=== PATIENT | female | born 1955 | race Caucasian/White ===

== ENCOUNTER 2023-07-05 10:58 | Emergency (ER) | payer SELFPAY ==
[2023-07-05] MEDS ORDERED: FLUORESCEIN NA 1 EA STRIP OS ONE (11:10)
[2023-07-05 11:11] VITALS: BP 140/73; PULSE 68; RESP 20; TEMP 98.8; BMI 30.2
[2023-07-05] MEDS ORDERED: TETRACAINE 0.5% OPHTH SOLN 2 ML BOTTLE OS ONE (11:11)
[2023-07-05] MEDS ORDERED: TETRACAINE 0.5% OPHTH SOLN 2 ML BOTTLE ONE (11:16)
[2023-07-05] MEDS ORDERED: FLUORESCEIN NA 1 EA STRIP ONE (11:16)
[2023-07-05] MEDS ORDERED: valACYclovir HCL 500 MG TABLET (FP) PO ONE (11:40)
[2023-07-05] MEDS ORDERED: valACYclovir HCL 500 MG TABLET (FP) ONE (11:49)
== END 2023-07-05 12:04 | disposition home or self-care (01) ==
LOC: FER 10:58
DX: R21 Rash and other nonspecific skin eruption (principal); B02.9 Zoster without complications
CPT/HCPCS: 99283-25